=== PATIENT | male | born 1980 | race Caucasian/White ===

== ENCOUNTER 2018-10-15 13:37 | Inpatient (IN) | payer MEDICARE, MEDICAID ==
[~2018-10-15] VITALS: Ht 172.7 cm; Wt 108.3 kg
[2018-10-15] MEDS ORDERED: FUROSEMIDE 40 MG INJ IV ONE (16:00)
--- NOTE | 2018-10-15 16:17 | ERD ---
ER Documentation Chief Complaint Chief Complaint abdominal pain sent by Dr Neves, does perineal dialysis HPI This is a 38-year-old man complaining of shortness of breath and increased abdominal distention x2 to 3 days because he ran out of his furosemide about 3 days ago. He states he has also had dyspnea on exertion, shortness of breath, and increasing peripheral edema. Patient undergoes nightly peritoneal dialysis but states in the past he has required hemodialysis for severe symptoms. Patient denies fevers or chills, no chest pain, no loss of consciousness, no headache or blurry vision, no vomiting or diarrhea, no blood per rectum or melena. ROS All systems reviewed and are negative except as per history of present illness. Medications Home Meds Reported Medications Calcium Acetate* (Calcium Acetate*) 667 Mg Capsule, 1334 MG PO WITH MEALS, #60 CAP 10/15/18 Metoprolol Tartrate* (Lopressor*) 100 Mg Tablet, 100 MG PO BID, #60 TAB 10/15/18 Omeprazole* (Omeprazole*) 20 Mg Capsule.dr, 20 MG PO DAILY, #30 CAP 10/15/18 Hydralazine Hcl* (Hydralazine Hcl*) 25 Mg Tab, 25 MG PO TID, #60 TAB 10/15/18 Amoxicillin/Potassium Clav (Amox-Clav 875-125 mg Tablet) 875-125 mg Tab, 1 TAB PO BID, #20 TAB 10/15/18 Metolazone* (Metolazone*) 5 Mg Tablet, 5 MG PO DAILY, TAB 10/15/18 Albuterol Sulfate* (Ventolin HFA*) 18 Gm Hfa.aer.ad, 2 PUFF INHALATION Q4H, #1 INHALER 10/15/18 Allergies Allergies: Coded Allergies: No Known Allergy (Unverified , 10/15/18) PMhx/Soc Obesity, hypertension, gastritis, end-stage kidney disease requiring nightly peritoneal dialysis FmHx Family History: No diabetes Physical Exam Vitals Vital Signs Date Temp Pulse Resp B/P (MAP) Pulse Ox O2 O2 Flow FiO2 Time Delivery Rate 10/15/18 106 20 153/106 100 BIPAP 16:19 (122) 10/15/18 98.7 91 18 131/82 97 13:44 (98) Physical Exam GENERAL: Well-developed, well-nourished, well-hydrated, dyspneic, afebrile HEENT: Moist mucous membranes, pink conjunctiva, no cervical spine tenderness or step-off deformities, no goiter, no jaundice or icterus NEURO: Alert and oriented 3, cranial nerves II through XII intact bilaterally, pupils equal round reactive to light, no focal deficits or facial asymmetry, sensation intact distally Strength 5/5 in upper and lower extremities bilaterally CARDIAC: Regular rate and rhythm, no murmurs rubs or gallops LUNGS: Crackles bilaterally, poor breath sounds, no wheezing or stridor ABDOMEN: Soft nontender, no guarding, no rigidity, no rebound, no psoas sign no obturator sign. Normoactive bowel sounds SKIN: Warm and dry to touch, no abrasions, contusions, or hematomas, no la cerations, no ecchymosis, no target lesions, and without ulcers EXTREMITIES: No clubbing cyanosis, 3+ pitting edema in the lower extremities bilaterally, calves symmetrical PSYCH: Normal affect without agitation or irritability Result Diagram: 10/15/18 1600 10/15/18 1600 Results 24 hrs Laboratory Tests Test 10/15/18 16:00 White Blood Count 13.3 10^3/ul Red Blood Count 3.76 10^6/ul Hemoglobin 10.0 g/dl Hematocrit 33.0 % Mean Corpuscular Volume 87.8 fl Mean Corpuscular Hemoglobin 26.6 pg Mean Corpuscular Hemoglobin Concent 30.3 g/dl Red Cell Distribution Width 16.7 % Platelet Count 301 10^3/UL Mean Platelet Volume 10.1 fl Immature Granulocytes % 1.200 % Neutrophils % 90.3 % Lymphocytes % 4.6 % Monocytes % 3.5 % Eosinophils % 0.2 % Basophils % 0.2 % Nucleated Red Blood Cells % 0.0 /100WBC Immature Granulocytes # 0.160 10^3/ul Neutrophils # 12.0 10^3/ul Lymphocytes # 0.6 10^3/ul Monocytes # 0.5 10^3/ul Eosinophils # 0.0 10^3/ul Basophils # 0.0 10^3/ul Nucleated Red Blood Cells # 0.0 10^3/ul Prothrombin Time 15.3 Sec Prothrombin Time Ratio 1.2 INR International Normalized Ratio 1.20 Activated Partial Thromboplast Time 31.7 Sec Sodium Level 137 mmol/L Potassium Level 4.5 mmol/L Chloride Level 96 mmol/L Carbon Dioxide Level 26 mmol/L Anion Gap 15 Blood Urea Nitrogen 85 mg/dl Creatinine 15.74 mg/dl Est Glomerular Filtrat Rate mL/min 3 mL/min Glucose Level 108 mg/dl Calcium Level 8.8 mg/dl Total Bilirubin 0.3 mg/dl Direct Bilirubin 0.00 mg/dl Indirect Bilirubin 0.3 mg/dl Aspartate Amino Transf (AST/SGOT) 14 IU/L Alanine Aminotransferase (ALT/SGPT) 14 IU/L Alkaline Phosphatase 60 IU/L Troponin I 0.241 ng/ml B-Type Natriuretic Peptide 78241 PG/ML Total Protein 7.2 g/dl Albumin 3.9 g/dl Globulin 3.30 g/dl Albumin/Globulin Ratio 1.18 Lipase 69 U/L Current Medications Medications Dose Sig/Olivia Start Time Status Last (Trade) Ordered Route PRN Stop Time Admin Dose Reason Admin Furosemide 80 mg ONCE ONCE 10/15/18 DC 10/15/18 (Lasix) IV 16:00 16:11 10/15/18 16:01 Aspirin 324 mg ONCE ONCE 10/15/18 UNV (Aspirin) PO 17:00 10/15/18 17:01 Procedures/MDM IV line was established patient was placed on court recording monitor rhythm strip revealed a narrow complex tachycardia at 120 bpm with upright P and T waves. Patient was afebrile EKG performed, read by me revealed a sinus tachycardia at 115 bpm, left axis deviation, narrow QRS complex, no concerning ST elevations or depressions noted I administered Lasix 80 mg IV x1 Bilateral pulmonary congestion worse on the right compared to the left Patient was placed on BiPAP for tachypnea and dyspnea CBC was unremarkable, electrolytes reveals acute kidney injury with a BUN/creatinine 85/16, liver function tests normal, troponin elevated at 0.2, BNP elevated. I administered aspirin 324 mg p.o. for cardioprotective measures although patient has no complaints of chest pain. Critical Care: Time: 49 minutes, this was time separate from other billable procedures. Treatments/Evaluations: Close monitoring and treatment of unstable vital signs, cardiorespiratory, and neurologic status, while maintaining tight balance of fluid, respiratory, and cardiac interventions. Patient admitted to telemetry setting Departure Diagnosis: Primary Impression: Non-STEMI (non-ST elevated myocardial infarction) Additional Impressions: End stage kidney disease Pulmonary edema Chronicity: acute Qualified Codes: J81.0 - Acute pulmonary edema Acute respiratory failure Respiratory failure complication: hypoxia and hypercapnia Qualified Codes: J96.01 - Acute respiratory failure with hypoxia; J96.02 - Acute respiratory failure with hypercapnia Condition: Serious NOE PATIÑO MD Oct 15, 2018 16:17
[2018-10-15] MEDS ORDERED: ALBU18HF INHALATION (16:45)
[2018-10-15] MEDS ORDERED: METO5TAB65 PO (16:45)
[2018-10-15] MEDS ORDERED: AMOX1TAB10 PO (16:46)
[2018-10-15] MEDS ORDERED: METO-407 PO (16:47)
[2018-10-15] MEDS ORDERED: OMEP20CA16 PO (16:47)
[2018-10-15] MEDS ORDERED: HYDR-3671 PO (16:47)
[2018-10-15] MEDS ORDERED: CALC667C PO (16:48)
[2018-10-15] MEDS ORDERED: AMLO5TAB4 PO (16:49)
[2018-10-15] MEDS ORDERED: CINA30TA4 PO (16:49)
[2018-10-15] MEDS ORDERED: ASPIRIN 81 MG TAB PO ONE (17:00)
--- NOTE | 2018-10-15 17:42 | HP ---
Date/Time of Note Date/Time of Note DATE: 10/15/18 TIME: 17:42 Assessment/Plan VTE Prophylaxis Pharmacological prophylaxis: heparin Lines/Catheters IV [facility]ter Type (from [facility]): [facility]ine [facility] Assessment/Plan Hospital Course 38-year-old male with comorbidities including obesity, end-stage renal disease on peritoneal dialysis, and hypertension who was sent in by his primary care physician because of fluid overload, who will be admitted to inpatient setting for further treatment and evaluation. 1. Fluid overload. Most probably secondary to underlying worsening renal function. The patient is a peritoneal dialysis patient. Status post IV Lasix in the emergency room. 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 Vascular surgeon has been contacted. If unable to get vascular surgery at this time, will start the patient on a Lasix drip. 2D echocardiogram to evaluate for any underlying heart failure. 2. NSTEMI. Most probably a type II event in the setting of underlying fluid overload. Cardiology following. 3. Hypertension. Resume antihypertensives. 4. Leukocytosis. Most probably reactive. Monitor. 5. Abdominal pain. Most probably secondary to underlying fluid overload. If not responding to diuretic therapy/ultrafiltration will consider imaging studies. 6. Normocytic anemia. Most probably anemia chronic kidney disease. Monitor H&H closely. Plan: The patient will be admitted to inpatient telemetry floor. The patient will be started on a renal diet. The patient will be started on DVT prophylaxis. The patient will remain a full code. Activities will be as tolerated. The rest of the patient's management will be based on the clinical course, inputs from consultants, and the results of diagnostic studies. Based on the patient's clinical presentation, he most probably requires at least 2 midnights' stay for further management and evaluation of his clinical presentation. The patient was seen in collaboration with Dr. Crouch. Result Diagram: 10/15/18 1600 10/15/18 1600 Results 24hrs Laboratory Tests Test 10/15/18 16:00 White Blood Count 13.3 H Red Blood Count 3.76 L Hemoglobin 10.0 L Hematocrit 33.0 L Mean Corpuscular Volume 87.8 Mean Corpuscular Hemoglobin 26.6 L Mean Corpuscular Hemoglobin Concent 30.3 L Red Cell Distribution Width 16.7 H Platelet Count 301 Mean Platelet Volume 10.1 Immature Granulocytes % 1.200 H Neutrophils % 90.3 H Lymphocytes % 4.6 L Monocytes % 3.5 Eosinophils % 0.2 Basophils % 0.2 Nucleated Red Blood Cells % 0.0 Immature Granulocytes # 0.160 H Neutrophils # 12.0 H Lymphocytes # 0.6 L Monocytes # 0.5 Eosinophils # 0.0 Basophils # 0.0 Nucleated Red Blood Cells # 0.0 Prothrombin Time 15.3 H Prothrombin Time Ratio 1.2 INR International Normalized Ratio 1.20 Activated Partial Thromboplast Time 31.7 Sodium Level 137 Potassium Level 4.5 Chloride Level 96 L Carbon Dioxide Level 26 Anion Gap 15 H Blood Urea Nitrogen 85 H Creatinine 15.74 H Est Glomerular Filtrat Rate mL/min 3 L Glucose Level 108 Calcium Level 8.8 Total Bilirubin 0.3 Direct Bilirubin 0.00 Indirect Bilirubin 0.3 Aspartate Amino Transf (AST/SGOT) 14 L Alanine Aminotransferase (ALT/SGPT) 14 Alkaline Phosphatase 60 Troponin I 0.241 *H B-Type Natriuretic Peptide 04890 H Total Protein 7.2 Albumin 3.9 Globulin 3.30 H Albumin/Globulin Ratio 1.18 Lipase 69 HPI/ROS Admit Date/Time Admit Date/Time Hx of Present Illness Reason for admission: Fluid overload, dyspnea sent by Dr. Neves Consultants 1. Colton Dubose MD Cardiology. 2. Marlen Martines MD, Nephrology. 3. Dontae Carmona MD, Vascular Surgery. This is a 38-year-old male with past medical history of hypertension and end- stage renal disease on peritoneal dialysis who ran out of his Lasix for the past 3 days. The patient went to see Dr. Neves who instructed patient to go to the nearest emergency room. The patient had dyspnea on exertion and increasing peripheral edema. The patient also had increasing abdominal distention. The patient denied any chest pain or palpitations. He denied any dizziness. He denied any fevers or chills. In the emergency room, the patient was noticed to be in respiratory distress and he was put on noninvasive positive pressure ventilation. The patient's chest x-ray was showing bibasilar infiltrates and cardiomegaly. The patient was also noticed to have a troponin of 0.241. He had a BUN and creatinine of 85 and 15.74 respectively. The patient was given aspirin 324 mg along with Lasix 80 mg by the ER physician. ROS Constitutional: no complaints Eyes: no complaints ENT: no complaints Respiratory: shortness of breath Cardiovascular: edema Gastrointestinal: other (Abdominal distension) Genitourinary: no complaints Musculoskeletal: no complaints Skin: no complaints Neurologic: no complaints Endocrine: no complaints Lymphatic: no complaints Psychological: no complaints Immunologic: no complaints PMH/Family/Social Past Medical History 1. Hypertension. 2. End-stage renal disease on peritoneal dialysis. 3. Obesity. Coded Allergies: No Known Allergy (Unverified , 10/15/18) Past Surgical History 1. Peritoneal dialysis catheter placement. Family History Significant Family History: diabetes Social History The patient lives at home with family. Alcohol Use: none Smoking Status: Former smoker Drug Use: none Exam/Review of Systems Vital Signs Vitals Vital Signs Date Temp Pulse Resp B/P (MAP) Pulse Ox O2 O2 Flow FiO2 Time Delivery Rate 10/15/18 89 95 30 17:24 10/15/18 139/90 BIPAP 17:22 (106) 10/15/18 20 16:19 10/15/18 98.7 13:44 Exam Exam General: Adequately build 38 year-old male lying in bed in mild respiratory distress. HEENT: Normocephalic, atraumatic. Eyes: Anicteric sclerae, conjunctivae clear. ENT: Nasal septum midline, oral mucosa moist. Neck supple. Respiratory: Bilaterally diminished breath sounds. Minimal use of accessory muscles of respiration. No adventitious breath sounds. Cardiovascular: S1, S2 heard. Regular rate and rhythm. Tachycardia. Abdomen: Distended. Genitourinary: Deferred. Extremities: No cyanosis, no clubbing. Bilateral lower extremity 2+ pitting edema. Peripheral pulses palpable. Neurologic: Cranial nerves II through XII grossly intact. The patient is awake, alert, and oriented. Skin: Normal skin turgor. No skin rashes. Additional Comments CXR IMPRESSION: 1. Bibasilar infiltrates. 2. Cardiomegaly. 12-Lead EKG Pulmonary disease pattern. Left anterior fascicular block. MARGE STAHL NP Oct 15, 2018 17:42
--- NOTE | 2018-10-15 17:50 | CONS ---
Assessment/Plan Assessment/Plan Hospital Course (Demo Recall) 1. Mildly abnormal troponin with no chest pain: Most likely secondary to his renal failure and fluid overload/congestive heart failure 2. Fluid overload/congestive heart failure acute on chronic probably secondary to fluid overload. Rule out cardiomyopathy 3. Hypertension hypertensive heart disease 4. Renal failure on peritoneal dialysis 5. Abdominal pain 6. Anemia Recommendations: We will obtain echocardiogram in a.m. Repeat cardiac enzymes: CK CK-MB in a.m. Dialysis as per renal team. Continue with blood pressure control. GI work-up and treatment as per internal medicine. Thank you for his referral. We will continue to follow along with you EDSON CASTELLON MD [facility] Consultation Date/Type/Reason Admit Date/Time Date of Consultation: Oct 15, 2018 Type of Consult Cardiology Reason for Consultation + trop Requesting Provider: MARGE STAHL NP Date/Time of Note DATE: 10/15/18 TIME: 17:44 Hx of Present Illness Interventional cardiology consultation note Chief complaint: Abdominal pain Reason for consult: Abnormal troponin History of present illness: Thank you for this referral. History was obtained from the patient from discussion with his family members at the bedside review of the chart discussion with the staff and physicians. This is a pleasant 38-year-old gentleman with history of renal failure on peritoneal dialysis who came to emergency room because of lower abdominal pain. Patient said that he has had lower abdominal pain sharp poking over the past 2 to 3 days he was seen by his primary care physician and was sent to emergency room for further evaluation. He denies any left-sided chest pain or pressure to me but in the emergency room routine work-up included troponin which was mildly elevated at 0.23. Patient chest x-ray also shows fluid overload and patient has been respiratory failure has been placed on BiPAP currently. Patient denies any left-sided chest pain or pressure but does have shortness of breath and some orthopnea especially. Patient pain has also ran out of his diuretics recently Allergies: No known drug allergies Medications were reviewed as per medical reconciliation sheet Family history: No history of early coronary artery disease Social history: Non-smoker Past medical history: Hypertension, renal failure on dialysis Review of system: Patient denies all others except for above-mentioned Past Medical History Home Meds Reported Medications Amlodipine Besylate* (Norvasc*) 5 Mg Tablet, 5 MG PO DAILY, TAB 10/15/18 Cinacalcet* (Sensipar*) 30 Mg Tab, 30 MG PO DAILY, TAB 10/15/18 Calcium Acetate* (Calcium Acetate*) 667 Mg Capsule, 1334 MG PO WITH MEALS, #60 CAP 10/15/18 Metoprolol Tartrate* (Lopressor*) 100 Mg Tablet, 100 MG PO BID, #60 TAB 10/15/18 Omeprazole* (Omeprazole*) 20 Mg Capsule.dr, 20 MG PO DAILY, #30 CAP 10/15/18 Hydralazine Hcl* (Hydralazine Hcl*) 25 Mg Tab, 25 MG PO TID, #60 TAB 10/15/18 Amoxicillin/Potassium Clav (Amox-Clav 875-125 mg Tablet) 875-125 mg Tab, 1 TAB PO BID, #20 TAB 10/15/18 Metolazone* (Metolazone*) 5 Mg Tablet, 5 MG PO DAILY, TAB 10/15/18 Albuterol Sulfate* (Ventolin HFA*) 18 Gm Hfa.aer.ad, 2 PUFF INHALATION Q4H, #1 INHALER 10/15/18 Allergies: Coded Allergies: No Known Allergy (Unverified , 10/15/18) Social History Smoking Status: Never smoker Exam/Review of Systems Vital Signs Vitals Vital Signs Date Temp Pulse Resp B/P (MAP) Pulse Ox O2 O2 Flow FiO2 Time Delivery Rate 10/15/18 89 95 30 17:24 10/15/18 139/90 BIPAP 17:22 (106) 10/15/18 20 16:19 10/15/18 98.7 13:44 Exam Exam General: Mild respiratory distress on BiPAP currently HEENT: NC/AT. pupils are equal. round. NECK: . no stridor. CV: RRR. systolic murmur; no gallop or rubs. PULM: no wheezing . + rhonchi. GI: SOFT, NT, , no rebound or guarding . + Mildly distended status post peritoneal dialysis tube placement Extremity: + B/L LE edema. no clubbing. neuro: awake and alert, OX3. Psych: calm and pleasant rectal: deferred : normal EKG shows sinus tachycardia. The vertical conduction delay. Pulmonary pattern Chest x-ray shows: 1. Bibasilar infiltrates. 2. Cardiomegaly. Labs Result Diagram: 10/15/18 1600 10/15/18 1600 Results 24hrs Laboratory Tests Test 10/15/18 16:00 White Blood Count 13.3 H Red Blood Count 3.76 L Hemoglobin 10.0 L Hematocrit 33.0 L Mean Corpuscular Volume 87.8 Mean Corpuscular Hemoglobin 26.6 L Mean Corpuscular Hemoglobin Concent 30.3 L Red Cell Distribution Width 16.7 H Platelet Count 301 Mean Platelet Volume 10.1 Immature Granulocytes % 1.200 H Neutrophils % 90.3 H Lymphocytes % 4.6 L Monocytes % 3.5 Eosinophils % 0.2 Basophils % 0.2 Nucleated Red Blood Cells % 0.0 Immature Granulocytes # 0.160 H Neutrophils # 12.0 H Lymphocytes # 0.6 L Monocytes # 0.5 Eosinophils # 0.0 Basophils # 0.0 Nucleated Red Blood Cells # 0.0 Prothrombin Time 15.3 H Prothrombin Time Ratio 1.2 INR International Normalized Ratio 1.20 Activated Partial Thromboplast Time 31.7 Sodium Level 137 Potassium Level 4.5 Chloride Level 96 L Carbon Dioxide Level 26 Anion Gap 15 H Blood Urea Nitrogen 85 H Creatinine 15.74 H Est Glomerular Filtrat Rate mL/min 3 L Glucose Level 108 Calcium Level 8.8 Total Bilirubin 0.3 Direct Bilirubin 0.00 Indirect Bilirubin 0.3 Aspartate Amino Transf (AST/SGOT) 14 L Alanine Aminotransferase (ALT/SGPT) 14 Alkaline Phosphatase 60 Troponin I 0.241 *H B-Type Natriuretic Peptide 86748 H Total Protein 7.2 Albumin 3.9 Globulin 3.30 H Albumin/Globulin Ratio 1.18 Lipase 69 EDSON CASTELLON MD Oct 15, 2018 17:50
[2018-10-15] MEDS ORDERED: HYDROCODONE/APAP (5/325) TAB PO PRN (18:00)
[2018-10-15] MEDS ORDERED: ONDANSETRON 4 MG INJ IV PRN (18:00)
[2018-10-15] MEDS ORDERED: NACL 0.9% 3 ML SYG IV SCH (18:00)
[2018-10-15] MEDS ORDERED: SOD CHLORIDE 0.9% 1,000 ML IV PRN (18:11)
[2018-10-15] MEDS: CALCIUM ACETATE 667 MG CAP PO SCH (18:24)
[2018-10-15] MEDS ORDERED: HEPARIN 1000 UNITS/ML 10 ML INJ CATHETER SCH ×2 (18:30)
[2018-10-15] MEDS ORDERED: SODIUM CHLORIDE 0.9% 1L BAG IV PRN ×2 (18:30)
[2018-10-15] MEDS ORDERED: FUROSEMIDE 250 MG in DEXTROSE 5% 225 ML IV SCH (19:30)
[2018-10-15 21:55] VITALS: PULSE 112
[2018-10-15 22:00] VITALS: BP 134/81; PULSE 113; RESP 20
[2018-10-15 22:10] VITALS: PULSE 111
[2018-10-15 22:30] VITALS: Ht 172.7 cm; Wt 108.3 kg
[2018-10-15 23:12] VITALS: PULSE 108
[2018-10-16] VITALS (17 sets, daily range): BP systolic 106–139; BP diastolic 71–85; PULSE 75–114; RESP 18–22
[2018-10-16] MEDS: METOPROLOL 100 MG TAB PO SCH ×3 (00:20→21:13)
[2018-10-16] MEDS: ACETAMINOPHEN 325 MG TAB PO PRN (00:23)
[2018-10-16] MEDS: HEPARIN 5,000 UNIT/1 ML VIAL SC SCH ×4 (00:30→21:25)
[2018-10-16] MEDS: AMOXICILLIN/CLAV 875 MG TAB PO SCH ×3 (05:48→21:13)
--- NOTE | 2018-10-16 08:44 | CONS ---
Consult Date/Type/Reason Admit Date/Time Oct 15, 2018 at 16:46 Initial Consult Date 10/15/18 Requesting Provider: MARGE STALH NP Date/Time of Note DATE: 10/16/18 TIME: 08:42 Subjective Interventional cardiology follow-up progress note Subjective: Discussed with the staff and telemetry was reviewed patient remains sinus rhythm. Patient denies any left-sided chest pain or pressure to me. Breathing has significantly improved now is off of BiPAP His lower abdominal pain is improving to Objective: General: no respiratory distress on O2 HEENT: NC/AT. pupils are equal. round. NECK: . no stridor. CV: RRR. systolic murmur; no gallop or rubs. PULM: no wheezing . +mild rhonchi. GI: SOFT, NT, , no rebound or guarding . + Mildly distended status post peritoneal dialysis tube placement Extremity: + B/L LE edema. no clubbing. neuro: awake and alert, OX3. Psych: calm and pleasant rectal: deferred : normal EKG shows sinus tachycardia. The vertical conduction delay. Pulmonary pattern Chest x-ray shows: 1. Bibasilar infiltrates. 2. Cardiomegaly. Objective Vitals Vital Signs Date Temp Pulse Resp B/P (MAP) Pulse Ox O2 O2 Flow FiO2 Time Delivery Rate 10/16/18 78 08:11 10/16/18 98.3 20 116/72 98 BIPAP 07:30 (87) 10/16/18 40 05:05 Intake and Output 10/15/18 10/15/18 10/16/18 1515:00 23:00 07:00 IntakeIntake Total 141 ml OutputOutput Total 550 ml BalanceBalance -409 ml Results/Medications Result Diagram: 10/16/18 0455 10/16/18 0455 Results 24 hrs Laboratory Tests Test 10/15/18 15:54 10/15/18 16:00 10/16/18 02:58 10/16/18 04:55 Hemoglobin A1c 6.3 H White Blood Count 13.3 H 11.4 H Red Blood Count 3.76 L 3.50 L Hemoglobin 10.0 L 9.2 L Hematocrit 33.0 L 30.9 L Mean Corpuscular 87.8 88.3 Volume Mean Corpuscular 26.6 L 26.3 L Hemoglobin Mean Corpuscular 30.3 L 29.8 L Hemoglobin Concent Red Cell 16.7 H 16.5 H Distribution Width Platelet Count 301 278 Mean Platelet Volume 10.1 10.5 H Immature 1.200 H 1.100 H Granulocytes % Neutrophils % 90.3 H 87.7 H Lymphocytes % 4.6 L 4.5 L Monocytes % 3.5 5.4 Eosinophils % 0.2 1.1 Basophils % 0.2 0.2 Nucleated Red Blood 0.0 0.0 Cells % Immature 0.160 H 0.130 H Granulocytes # Neutrophils # 12.0 H 10.0 H Lymphocytes # 0.6 L 0.5 L Monocytes # 0.5 0.6 Eosinophils # 0.0 0.1 Basophils # 0.0 0.0 Nucleated Red Blood 0.0 0.0 Cells # Prothrombin Time 15.3 H Prothrombin Time 1.2 Ratio INR International 1.20 Normalized Ratio Activated 31.7 Partial Thromboplast Time Sodium Level 137 138 Potassium Level 4.5 4.8 Chloride Level 96 L 97 Carbon Dioxide Level 26 28 Anion Gap 15 H 13 Blood Urea Nitrogen 85 H 88 H Creatinine 15.74 H 17.73 H Est Glomerular 3 L 3 L Filtrat Rate mL/min Glucose Level 108 109 Calcium Level 8.8 8.8 Total Bilirubin 0.3 0.2 Direct Bilirubin 0.00 0.00 Indirect Bilirubin 0.3 0.2 Aspartate Amino 14 L 12 L Transf (AST/SGOT) Alanine 14 17 Aminotransferase (AL T/SGPT) Alkaline Phosphatase 60 55 Troponin I 0.241 *H 0.362 *H B-Type Natriuretic 19569 H Peptide Total Protein 7.2 5.6 #L Albumin 3.9 3.2 L Globulin 3.30 H 2.40 Albumin/Globulin 1.18 1.33 Ratio Lipase 69 Lactic Acid Level 0.9 Magnesium Level 2.5 Creatine Kinase 68 Creatine Kinase 3.1 Index Creatinine Kinase MB 2.13 (Mass) Triglycerides Level 175 H Cholesterol Level 141 LDL Cholesterol, 75 Calculated HDL Cholesterol 31 Cholesterol/HDL 4.5 Ratio Home Meds Reported Medications Amlodipine Besylate* (Norvasc*) 5 Mg Tablet, 5 MG PO DAILY, TAB 10/15/18 Cinacalcet* (Sensipar*) 30 Mg Tab, 30 MG PO DAILY, TAB 10/15/18 Calcium Acetate* (Calcium Acetate*) 667 Mg Capsule, 1334 MG PO WITH MEALS, #60 CAP 10/15/18 Metoprolol Tartrate* (Lopressor*) 100 Mg Tablet, 100 MG PO BID, #60 TAB 10/15/18 Omeprazole* (Omeprazole*) 20 Mg Capsule.dr, 20 MG PO DAILY, #30 CAP 10/15/18 Hydralazine Hcl* (Hydralazine Hcl*) 25 Mg Tab, 25 MG PO TID, #60 TAB 10/15/18 Amoxicillin/Potassium Clav (Amox-Clav 875-125 mg Tablet) 875-125 mg Tab, 1 TAB PO BID, #20 TAB 10/15/18 Metolazone* (Metolazone*) 5 Mg Tablet, 5 MG PO DAILY, TAB 10/15/18 Albuterol Sulfate* (Ventolin HFA*) 18 Gm Hfa.aer.ad, 2 PUFF INHALATION Q4H, #1 INHALER 10/15/18 Medications Current Medications Amlodipine Besylate (Norvasc) 5 mg DAILY PO ; Start 10/16/18 at 09:00 Calcium Acetate (Phoslo) 1,334 mg WITH MEALS PO Last administered on 10/15/18at 18:24; Admin Dose 1,334 MG; Start 10/15/18 at 18:00 Cinacalcet (Sensipar) 30 mg DAILY PO ; Start 10/16/18 at 09:00 Hydralazine HCl (Apresoline) 25 mg TID PO Last administered on 10/16/18at 00:20; Admin Dose 25 MG; Start 10/15/18 at 21:00 Metolazone (Zaroxolyn) 5 mg DAILY PO ; Start 10/16/18 at 09:00 Metoprolol Tartrate (Lopressor) 100 mg BID PO Last administered on 10/16/18at 00:20; Admin Dose 100 MG; Start 10/15/18 at 21:00 IV Flush (NS 3 ml) 3 ml PER PROTOCOL IV ; Start 10/15/18 at 18:00 Ondansetron HCl (Zofran Inj) 4 mg Q6H PRN IV NAUSEA/VOMITING; Start 10/15/18 at 18:00 Acetaminophen (Tylenol Tab) 650 mg Q6H PRN PO .PAIN 1-3 OR TEMP Last administered on 10/16/18at 00:23; Admin Dose 650 MG; Start 10/15/18 at 18:00 Acetaminophen/ Hydrocodone Bitart ([place] (5/325)) 1 tab Q6H PRN PO .PAIN 4-6; Start 10/15/18 at 18:00 Heparin Sodium (Porcine) (Heparin (5000 Units/1ml)) 5,000 unit Q8 SC Last administered on 10/16/18at 06:11; Admin Dose 5,000 UNIT; Start 10/15/18 at 22:00 Heparin Sodium (Porcine) (Heparin (1000 Units/ml)) 4,000 unit AFTER DIALYSIS CATHETER ; Start 10/15/18 at 18:30 Sodium Chloride 1,000 ml @ 0 mls/hr Q0M PRN IV TO KEEP SBP ABOVE 90; Start 10/15/18 at 18:11 Sodium Chloride (NS) -To prime the dialy... DIRECTED FOR HD PRN IV HD; Start 10/15/18 at 18:30 Amoxicillin/ Clavulanate Potassium (Augmentin) 875 mg BID PO Last administered on 10/16/18at 05:48; Admin Dose 875 MG; Start 10/16/18 at 03:30; Stop 10/17/18 at 09:01 Assessment/Plan Hospital Course (Demo Recall) 1. Mildly abnormal troponin with no chest pain: Most likely secondary to his renal failure and fluid overload/congestive heart failure 2. Fluid overload/congestive heart failure acute on chronic probably secondary to fluid overload. Rule out cardiomyopathy 3. Hypertension hypertensive heart disease 4. Renal failure on peritoneal dialysis 5. Abdominal pain 6. Anemia Recommendations: We will obtain echocardiogram today . Dialysis as per renal team. Continue with blood pressure control. GI work-up and treatment as per internal medicine. I will order an ultrasound of the abdomen meanwhile evaluate for ascites versus others Thank you for his referral. We will continue to follow along with you EDSON CASTELLON MD [facility] EDSON CASTELLON MD Oct 16, 2018 08:44
[2018-10-16] MEDS: CINACALCET 30 MG TAB PO SCH (09:30)
[2018-10-16] MEDS: CALCIUM ACETATE 667 MG CAP PO SCH ×3 (09:30→17:45)
[2018-10-16] MEDS: AMLODIPINE 5 MG TAB PO SCH (09:30)
--- NOTE | 2018-10-16 10:12 | RADRPT ---
Echocardiogram Report Patient Name: ESDRAS OLIVEROSPatient ID: [id number] : 1980 (38y 9m)Study Date: 10/16/2018 7:36:38 AM Gender: MAccession #: [id number] Tech: Soledad Messer RUST Location: [id number] Ref.Physician: EDSON DUBOSE Height(Cm): BSA: Weight(Kg): Quality: Technically Difficult StudyOrder Physician: EDSON DUBOSE Account #: Procedures: Echocardiographic Report: Transthoracic echocardiogram with complete 2D, M-Mode, and doppler examination. Indications: Positive Troponin. Measurements: 2D/M Mode Doppler Measurement Value Normal Range Measurement Value Normal Range LVIDd 2D 4.2 [ 4.2 - 5.8 ] cm AV Peak Pieter 1.8 [ 100.0 - 170.0 ] cm/sec LVIDs 2D 2.3 [ 2.5 - 4.0 ] cm AV Peak PG 12.0 [ 2.0 - 9.0 ] mmHg LVPWd 2D 1.7 [ 0.6 - 1.0 ] cm LVOT Peak Pieter 1.5 [ 70.0 - 110.0 ] cm/sec IVSd 2D 1.6 [ 0.6 - 1.0 ] cm LVOT Peak PG 9.0 [ 2.0 - 6.0 ] mmHg AoR Diam 2D 3.3 [ 2.6 - 3.4 ] cm MV E Peak Pieter 0.7 [ 60.0 - 130.0 ] cm/sec EDV 2D 78.6 [ 62.0 - 150.0 ] ml MV A Peak Pieter 0.9 [ 100.0 - 120.0 ] cm/sec ESV 2D 18.1 [ 21.0 - 61.0 ] ml MV E/A 0.8 [ 0.8 - 1.5 ] ratio EF 2D 77.0 [ 52.0 - 72.0 ] percent MV Decel Time 183 [ 104 - 258 ] msec LA Dimen 2D 4.4 [ 3.0 - 4.0 ] cm Lat E` Pieter 0.1 [ 10.0 - 15.0 ] cm/sec Lateral E/E` 13.0 [ 1.0 - 2.0 ] ratio MV E/A 0.8 [ 0.8 - 1.5 ] ratio TR Peak Pieter 2.4 [ 100.0 - 280.0 ] cm/sec TR Peak PG 23.0 mmHg RVSP 33.0 [ 10.0 - 36.0 ] mmHg RA Pressure 10.0 mmHg Findings: Left Ventricle: Normal left ventricular systolic function. Normal left ventricular cavity size. Severe concentric left ventricular hypertrophy. Ejection fraction is visually estimated at 70 %. Tissue Doppler/Mitral Doppler indices are consistent with impaired relaxation (Stage I diastolic dysfunction). Right Ventricle: Normal right ventricular size. Normal right ventricular systolic function. Left Atrium: There is mild enlargement of left atrium. Right Atrium: The right atrium is normal in size. Mitral Valve: Normal appearance and function of the mitral valve with trace physiologic regurgitation. Aortic Valve: Normal appearance of the aortic valve. No significant aortic stenosis or insufficiency. Tricuspid Valve: Normal appearance of the tricuspid valve. The estimated Peak RVSP is 33 mmHg. There is trace tricuspid regurgitation. Pulmonic Valve: Pulmonic valve not well visualized. Pericardium: Small pericardial effusion. Aorta: Normal aortic root. IVC: Normal size and normal respiratory collapse consistent with normal right atrial pressure. Conclusions: Normal left ventricular systolic function. Normal left ventricular cavity size. Severe concentric left ventricular hypertrophy. Ejection fraction is visually estimated at 70 %. Tissue Doppler/Mitral Doppler indices are consistent with impaired relaxation (Stage I diastolic dysfunction). There is mild enlargement of left atrium. Normal appearance and function of the mitral valve with trace physiologic regurgitation. Normal appearance of the aortic valve. No significant aortic stenosis or insufficiency. Normal appearance of the tricuspid valve. The estimated Peak RVSP is 33 mmHg. There is trace tricuspid regurgitation. Electronically Signed By: Edson Dubose 2018-10-16 10:10:42 PDT
[2018-10-16] MEDS: METOLAZONE 5 MG TAB PO SCH (12:36)
--- NOTE | 2018-10-16 14:10 | CONS ---
Assessment/Plan Assessment/Plan Assessment/Plan ACUTE LOWER ABDOMINAL PAIN WITH WATERY LOOSE BOWELS X 3 FOR LAST 2 DAYS ? FOOD RELATED, NO FEVER CHILLS BILATERAL LEG EDEMA FLUID OVERLOAD, BL CHEST INFILTRATES ATELECTASIS, MILD LEUKOCYTOSIS ESRD DUE TO CHRONIC KIDNEY DISEASE OF UNDETERMINED ETIOLOGY ON PERITONEAL DIALYSIS MILD ANEMIA ESRD HYPERTENSION CONTROLLED ELEVATED BNP AND TROPONIN CONCENTRIC HYPERTROPHY LEFT VENTRICLE WITH EF OF 70% PLAN ACUTE HD WITH RT FEMORAL CATHETER ALREADY INSERTED FOR ULTRAFILTRATION. Consultation Date/Type/Reason Admit Date/Time Oct 15, 2018 at 16:46 Type of Consult Nephrology Date/Time of Note DATE: 10/16/18 TIME: 13:55 Hx of Present Illness abdominal pain suprapubic area as if colitis since monday with 3 watery bowel movements . abdominal pain improving shortness of breath improving. unable to eat much for last 2 days . had sandwich today. no chest pain, nausea vomiting. H/O ESRD HYPERTENSION OBESITY NONCOMPLIANCE WITH SALT AND FLUID INTAKE Constitutional: requiring O2 Respiratory: cough, shortness of breath, wheezing Gastrointestinal: pain, decreased appetite, diarrhea Past Medical History Home Meds Reported Medications Amlodipine Besylate* (Norvasc*) 5 Mg Tablet, 5 MG PO DAILY, TAB 10/15/18 Cinacalcet* (Sensipar*) 30 Mg Tab, 30 MG PO DAILY, TAB 10/15/18 Calcium Acetate* (Calcium Acetate*) 667 Mg Capsule, 1334 MG PO WITH MEALS, #60 CAP 10/15/18 Metoprolol Tartrate* (Lopressor*) 100 Mg Tablet, 100 MG PO BID, #60 TAB 10/15/18 Omeprazole* (Omeprazole*) 20 Mg Capsule.dr, 20 MG PO DAILY, #30 CAP 10/15/18 Hydralazine Hcl* (Hydralazine Hcl*) 25 Mg Tab, 25 MG PO TID, #60 TAB 10/15/18 Amoxicillin/Potassium Clav (Amox-Clav 875-125 mg Tablet) 875-125 mg Tab, 1 TAB PO BID, #20 TAB 10/15/18 Metolazone* (Metolazone*) 5 Mg Tablet, 5 MG PO DAILY, TAB 10/15/18 Albuterol Sulfate* (Ventolin HFA*) 18 Gm Hfa.aer.ad, 2 PUFF INHALATION Q4H, #1 INHALER 10/15/18 Medications Current Medications Amlodipine Besylate (Norvasc) 5 mg DAILY PO Last administered on 10/16/18 09:30; Admin Dose 5 MG; Start 10/16/18 at 09:00 Calcium Acetate (Phoslo) 1,334 mg WITH MEALS PO Last administered on 10/16/18 12:35; Admin Dose 1,334 MG; Start 10/15/18 at 18:00 Cinacalcet (Sensipar) 30 mg DAILY PO Last administered on 10/16/18 09:30; Admin Dose 30 MG; Start 10/16/18 at 09:00 Hydralazine HCl (Apresoline) 25 mg TID PO Last administered on 10/16/18 09:31; Admin Dose 25 MG; Start 10/15/18 at 21:00 Metolazone (Zaroxolyn) 5 mg DAILY PO Last administered on 10/16/18 12:36; Admin Dose 5 MG; Start 10/16/18 at 09:00 Metoprolol Tartrate (Lopressor) 100 mg BID PO Last administered on 10/16/18 0 9:31; Admin Dose 100 MG; Start 10/15/18 at 21:00 IV Flush (NS 3 ml) 3 ml PER PROTOCOL IV ; Start 10/15/18 at 18:00 Ondansetron HCl (Zofran Inj) 4 mg Q6H PRN IV NAUSEA/VOMITING; Start 10/15/18 at 18:00 Acetaminophen (Tylenol Tab) 650 mg Q6H PRN PO .PAIN 1-3 OR TEMP Last administered on 10/16/18 00:23; Admin Dose 650 MG; Start 10/15/18 at 18:00 Acetaminophen/ Hydrocodone Bitart (Metaline (5/325)) 1 tab Q6H PRN PO .PAIN 4-6; Start 10/15/18 at 18:00 Heparin Sodium (Porcine) (Heparin (5000 Units/1ml)) 5,000 unit Q8 SC Last administered on 10/16/18 06:11; Admin Dose 5,000 UNIT; Start 10/15/18 at 22:00 Heparin Sodium (Porcine) (Heparin (1000 Units/ml)) 4,000 unit AFTER DIALYSIS CATHETER ; Start 10/15/18 at 18:30 Sodium Chloride 1,000 ml @ 0 mls/hr Q0M PRN IV TO KEEP SBP ABOVE 90; Start 10/06 at 18:11 Sodium Chloride (NS) -To prime the dialy... DIRECTED FOR HD PRN IV HD; Start 10/15/18 at 18:30 Amoxicillin/ Clavulanate Potassium (Augmentin) 875 mg BID PO Last administered on 10/16/18at 09:30; Admin Dose 875 MG; Start 10/16/18 at 03:30; Stop 10/17/18 at 09:01 Allergies: Coded Allergies: No Known Allergy (Unverified , 10/15/18) Social History Alcohol Use: none Smoking Status: Never smoker Drug Use: none Exam/Review of Systems Vital Signs Vitals Vital Signs Date Temp Pulse Resp B/P (MAP) Pulse Ox O2 O2 Flow FiO2 Time Delivery Rate 10/16/18 96 12:14 10/16/18 98.1 20 131/78 93 Nasal 11:34 (95) Cannula 10/16/18 40 05:05 Intake and Output 10/15/18 10/15/18 10/16/18 1515:00 23:00 07:00 IntakeIntake Total 141 ml OutputOutput Total 550 ml BalanceBalance -409 ml Exam Respiratory: congested cough, diminished breath sounds, wheezing Gastrointestinal: tender (SUPRAPUBIC AREA) Extremities: edema (1 PLUS EITHER SIDE [place]) Labs Result Diagram: 10/16/18 0455 10/16/18 0455 Results 24hrs Laboratory Tests Test 10/15/18 15:54 10/15/18 16:00 10/16/18 02:58 10/16/18 04:55 Hemoglobin A1c 6.3 H White Blood Count 13.3 H 11.4 H Red Blood Count 3.76 L 3.50 L Hemoglobin 10.0 L 9.2 L Hematocrit 33.0 L 30.9 L Mean Corpuscular 87.8 88.3 Volume Mean Corpuscular 26.6 L 26.3 L Hemoglobin Mean Corpuscular 30.3 L 29.8 L Hemoglobin Concent Red Cell 16.7 H 16.5 H Distribution Width Platelet Count 301 278 Mean Platelet Volume 10.1 10.5 H Immature 1.200 H 1.100 H Granulocytes % Neutrophils % 90.3 H 87.7 H Lymphocytes % 4.6 L 4.5 L Monocytes % 3.5 5.4 Eosinophils % 0.2 1.1 Basophils % 0.2 0.2 Nucleated Red Blood 0.0 0.0 Cells % Immature 0.160 H 0.130 H Granulocytes # Neutrophils # 12.0 H 10.0 H Lymphocytes # 0.6 L 0.5 L Monocytes # 0.5 0.6 Eosinophils # 0.0 0.1 Basophils # 0.0 0.0 Nucleated Red Blood 0.0 0.0 Cells # Prothrombin Time 15.3 H Prothrombin Time 1.2 Ratio INR International 1.20 Normalized Ratio Activated 31.7 Partial Thromboplast Time Sodium Level 137 138 Potassium Level 4.5 4.8 Chloride Level 96 L 97 Carbon Dioxide Level 26 28 Anion Gap 15 H 13 Blood Urea Nitrogen 85 H 88 H Creatinine 15.74 H 17.73 H Est Glomerular 3 L 3 L Filtrat Rate mL/min Glucose Level 108 109 Calcium Level 8.8 8.8 Total Bilirubin 0.3 0.2 Direct Bilirubin 0.00 0.00 Indirect Bilirubin 0.3 0.2 Aspartate Amino 14 L 12 L Transf (AST/SGOT) Alanine 14 17 Aminotransferase (AL T/SGPT) Alkaline Phosphatase 60 55 Troponin I 0.241 *H 0.362 *H B-Type Natriuretic 26299 H Peptide Total Protein 7.2 5.6 #L Albumin 3.9 3.2 L Globulin 3.30 H 2.40 Albumin/Globulin 1.18 1.33 Ratio Lipase 69 Lactic Acid Level 0.9 Magnesium Level 2.5 Creatine Kinase 68 Creatine Kinase 3.1 Index Creatinine Kinase MB 2.13 (Mass) Triglycerides Level 175 H Cholesterol Level 141 LDL Cholesterol, 75 Calculated HDL Cholesterol 31 Cholesterol/HDL 4.5 Ratio Medications Medications Current Medications Amlodipine Besylate (Norvasc) 5 mg DAILY PO Last administered on 10/16/18 09:30; Admin Dose 5 MG; Start 10/16/18 at 09:00 Calcium Acetate (Phoslo) 1,334 mg WITH MEALS PO Last administered on 10/16/18 12:35; Admin Dose 1,334 MG; Start 10/15/18 at 18:00 Cinacalcet (Sensipar) 30 mg DAILY PO Last administered on 10/16/18 09:30; Admin Dose 30 MG; Start 10/16/18 at 09:00 Hydralazine HCl (Apresoline) 25 mg TID PO Last administered on 10/16/18 09:31; Admin Dose 25 MG; Start 10/15/18 at 21:00 Metolazone (Zaroxolyn) 5 mg DAILY PO Last administered on 10/16/18 12:36; Admin Dose 5 MG; Start 10/16/18 at 09:00 Metoprolol Tartrate (Lopressor) 100 mg BID PO Last administered on 10/16/18 09:31; Admin Dose 100 MG; Start 10/15/18 at 21:00 IV Flush (NS 3 ml) 3 ml PER PROTOCOL IV ; Start 10/15/18 at 18:00 Ondansetron HCl (Zofran Inj) 4 mg Q6H PRN IV NAUSEA/VOMITING; Start 10/15/18 at 18:00 Acetaminophen (Tylenol Tab) 650 mg Q6H PRN PO .PAIN 1-3 OR TEMP Last administered on 10/16/18 00:23; Admin Dose 650 MG; Start 10/15/18 at 18:00 Acetaminophen/ Hydrocodone Bitart (Metaline (5/325)) 1 tab Q6H PRN PO .PAIN 4-6; Start 10/15/18 at 18:00 Heparin Sodium (Porcine) (Heparin (5000 Units/1ml)) 5,000 unit Q8 SC Last administered on 10/16/18 06:11; Admin Dose 5,000 UNIT; Start 10/15/18 at 22:00 Heparin Sodium (Porcine) (Heparin (1000 Units/ml)) 4,000 unit AFTER DIALYSIS CATHETER ; Start 10/15/18 at 18:30 Sodium Chloride 1,000 ml @ 0 mls/hr Q0M PRN IV TO KEEP SBP ABOVE 90; Start 10/15/18 at 18:11 Sodium Chloride (NS) -To prime the dialy... DIRECTED FOR HD PRN IV HD; Start 10/15/18 at 18:30 Amoxicillin/ Clavulanate Potassium (Augmentin) 875 mg BID PO Last administered on 10/16/18 09:30; Admin Dose 875 MG; Start 10/16/18 at 03:30; Stop 10/17/18 at 09:01 TRACEE YATES MD Oct 16, 2018 14:09
--- NOTE | 2018-10-16 15:27 | PN ---
Date/Time of Note Date/Time of Note DATE: 10/16/18 TIME: 15:19 Assessment/Plan VTE Prophylaxis Risk score (from Nsg)>0 risk: 1 SCD applied (from Nsg): Yes Pharmacological prophylaxis: heparin Lines/Catheters IV Catheter Type (from Nrsg): Saline Lock Urinary Cath still in place: No Assessment/Plan Assessment/Plan 38-year-old obese man with history of ESRD on peritoneal dialysis and hy pertension presents with abdominal pain and diarrhea. # Fluid overload - Unclear exact etiology. If anything patient has had GI losses from diarrhea. - Was on lasix gtt but only put out 500 cc urine - Now s/p femoral vascath, plan for hemodialysis for ultrafiltration. - Dr. De La Fuente following. # Abdominal pain # Diarrhea - Consistent with acute gastroenteritis - However he also does have rebound tenderness on exam concerning for early peritonitis - Continue Augmentin as ordered, although treatment for SBP is typically fluoroquinolones. - Monitor closely. May improve after HD. # Elevated troponin - Unclear why troponin sent, patient denies chest pain. - Cardiology following. No further workup needed. # Hypertension. Resume antihypertensives. Plan: Plan for one session of hemodialysis today. Also on antibiotics for possible peritonitis. May benefit from a week of ciprofloxacin. Will defer to Dr. De La Fuente. Result Diagram: 10/16/18 0455 10/16/18 0455 Subjective 24 Hr Interval Summary Free Text/Dictation Patient got femoral vascath, about to get hemodialysis. Overall feeling well. Still complains of cramping lower abdominal pain and d iarrhea. Exam/Review of Systems Exam Vitals Vital Signs Date Temp Pulse Resp B/P (MAP) Pulse Ox O2 O2 Flow FiO2 Time Delivery Rate 10/16/18 96 12:14 10/16/18 98.1 20 131/78 93 Nasal 11:34 (95) Cannula 10/16/18 40 05:05 Intake and Output 10/15/18 10/15/18 10/16/18 1515:00 23:00 07:00 IntakeIntake Total 141 ml OutputOutput Total 550 ml BalanceBalance -409 ml Exam General: Obese 38 year-old man lying in bed in mild respiratory distress. HEENT: Normocephalic, atraumatic. Eyes: Anicteric sclerae, conjunctivae clear. ENT: Nasal septum midline, oral mucosa moist. Neck supple. Respiratory: Bilaterally diminished breath sounds. No use of accessory muscles of respiration. No adventitious breath sounds. Cardiovascular: S1, S2 heard. Regular rate and rhythm. Tachycardia. Abdomen: Distended but soft, peritoneal cath in place clean appearing. Tender to palpation throughout with rebound tenderness. Extremities: No cyanosis, no clubbing. Bilateral lower extremity nonpitting edema. Peripheral pulses palpable. Femoral catheter in place. Results Results 24hrs Laboratory Tests Test 10/15/18 15:54 10/15/18 16:00 10/16/18 02:58 10/16/18 04:55 Hemoglobin A1c 6.3 H White Blood Count 13.3 H 11.4 H Red Blood Count 3.76 L 3.50 L Hemoglobin 10.0 L 9.2 L Hematocrit 33.0 L 30.9 L Mean Corpuscular 87.8 88.3 Volume Mean Corpuscular 26.6 L 26.3 L Hemoglobin Mean Corpuscular 30.3 L 29.8 L Hemoglobin Concent Red Cell 16.7 H 16.5 H Distribution Width Platelet Count 301 278 Mean Platelet Volume 10.1 10.5 H Immature 1.200 H 1.100 H Granulocytes % Neutrophils % 90.3 H 87.7 H Lymphocytes % 4.6 L 4.5 L Monocytes % 3.5 5.4 Eosinophils % 0.2 1.1 Basophils % 0.2 0.2 Nucleated Red Blood 0.0 0.0 Cells % Immature 0.160 H 0.130 H Granulocytes # Neutrophils # 12.0 H 10.0 H Lymphocytes # 0.6 L 0.5 L Monocytes # 0.5 0.6 Eosinophils # 0.0 0.1 Basophils # 0.0 0.0 Nucleated Red Blood 0.0 0.0 Cells # Prothrombin Time 15.3 H Prothrombin Time 1.2 Ratio INR International 1.20 Normalized Ratio Activated 31.7 Partial Thromboplast Time Sodium Level 137 138 Potassium Level 4.5 4.8 Chloride Level 96 L 97 Carbon Dioxide Level 26 28 Anion Gap 15 H 13 Blood Urea Nitrogen 85 H 88 H Creatinine 15.74 H 17.73 H Est Glomerular 3 L 3 L Filtrat Rate mL/min Glucose Level 108 109 Calcium Level 8.8 8.8 Total Bilirubin 0.3 0.2 Direct Bilirubin 0.00 0.00 Indirect Bilirubin 0.3 0.2 Aspartate Amino 14 L 12 L Transf (AST/SGOT) Alanine 14 17 Aminotransferase (AL T/SGPT) Alkaline Phosphatase 60 55 Troponin I 0.241 *H 0.362 *H B-Type Natriuretic 68587 H Peptide Total Protein 7.2 5.6 #L Albumin 3.9 3.2 L Globulin 3.30 H 2.40 Albumin/Globulin 1.18 1.33 Ratio Lipase 69 Lactic Acid Level 0.9 Magnesium Level 2.5 Creatine Kinase 68 Creatine Kinase 3.1 Index Creatinine Kinase MB 2.13 (Mass) Triglycerides Level 175 H Cholesterol Level 141 LDL Cholesterol, 75 Calculated HDL Cholesterol 31 Cholesterol/HDL 4.5 Ratio Medications Medication Current Medications Amlodipine Besylate (Norvasc) 5 mg DAILY PO Last administered on 10/16/18 09:30; Admin Dose 5 MG; Start 10/16/18 at 09:00 Calcium Acetate (Phoslo) 1,334 mg WITH MEALS PO Last administered on 10/16/18 12:35; Admin Dose 1,334 MG; Start 10/15/18 at 18:00 Cinacalcet (Sensipar) 30 mg DAILY PO Last administered on 10/16/18 09:30; Admin Dose 30 MG; Start 10/16/18 at 09:00 Hydralazine HCl (Apresoline) 25 mg TID PO Last administered on 10/16/18 09:31; Admin Dose 25 MG; Start 10/15/18 at 21:00 Metolazone (Zaroxolyn) 5 mg DAILY PO Last administered on 10/16/18 12:36; Admin Dose 5 MG; Start 10/16/18 at 09:00 Metoprolol Tartrate (Lopressor) 100 mg BID PO Last administered on 10/16/18 09:31; Admin Dose 100 MG; Start 10/15/18 at 21:00 IV Flush (NS 3 ml) 3 ml PER PROTOCOL IV ; Start 10/15/18 at 18:00 Ondansetron HCl (Zofran Inj) 4 mg Q6H PRN IV NAUSEA/VOMITING; Start 10/15/18 at 18:00 Acetaminophen (Tylenol Tab) 650 mg Q6H PRN PO .PAIN 1-3 OR TEMP Last administered on 10/16/18 00:23; Admin Dose 650 MG; Start 10/15/18 at 18:00 Acetaminophen/ Hydrocodone Bitart ([place] (5/325)) 1 tab Q6H PRN PO .PAIN 4-6; Start 10/15/18 at 18:00 Heparin Sodium (Porcine) (Heparin (5000 Units/1ml)) 5,000 unit Q8 SC Last administered on 10/16/18at 06:11; Admin Dose 5,000 UNIT; Start 10/15/18 at 22:00 Heparin Sodium (Porcine) (Heparin (1000 Units/ml)) 4,000 unit AFTER DIALYSIS CATHETER ; Start 10/15/18 at 18:30 Sodium Chloride 1,000 ml @ 0 mls/hr Q0M PRN IV TO KEEP SBP ABOVE 90; Start 10/15/18 at 18:11 Sodium Chloride (NS) -To prime the dialy... DIRECTED FOR HD PRN IV HD; Start 10/15/18 at 18:30 Amoxicillin/ Clavulanate Potassium (Augmentin) 875 mg BID PO Last administered on 10/16/18at 09:30; Admin Dose 875 MG; Start 10/16/18 at 03:30; Stop 10/17/18 at 09:01 AMBREEN ALVAREZ MD Oct 16, 2018 15:27
--- NOTE | 2018-10-16 16:27 | OPR ---
DATE OF OPERATION: PREOPERATIVE DIAGNOSIS: Renal failure. POSTOPERATIVE DIAGNOSIS: Renal failure. PROCEDURE: Right femoral hemodialysis catheter placement. SURGEON: Facundo Carmona MD ANESTHESIA: Local. CONSENT: Risks, benefits, complications, alternative therapies were explained to the patient and the family and consent was obtained. OPERATIVE TECHNIQUE: The patient was placed in supine position, prepped and draped in usual sterile fashion. Time-out was called. Access was gained in the right femoral vein. Guidewire was advanced through without any difficulty. Subcutaneous tissues were dilated. Central line was advanced over g uidewire and secured to skin using silk sutures. Both ports of the catheter were aspirated and injec kyler using saline solution. The patient tolerated the procedure well. Dictated By: FACUNDO CARMONA MD FM/NTS Conf#: [id number] DID#: [id number] CC: AMBREEN ALVAREZ MD; TRACEE YATES MD;*EndCC*
[2018-10-17] VITALS (9 sets, daily range): BP systolic 108–131; BP diastolic 68–79; PULSE 79–108; RESP 19–20
[2018-10-17] MEDS: HEPARIN 5,000 UNIT/1 ML VIAL SC SCH ×2 (06:21→14:00)
[2018-10-17] MEDS: CINACALCET 30 MG TAB PO SCH (08:21)
[2018-10-17] MEDS: CALCIUM ACETATE 667 MG CAP PO SCH ×3 (08:21→18:25)
[2018-10-17] MEDS: METOPROLOL 100 MG TAB PO SCH ×2 (08:21→21:26)
[2018-10-17] MEDS: METOLAZONE 5 MG TAB PO SCH (08:21)
[2018-10-17] MEDS: AMOXICILLIN/CLAV 875 MG TAB PO SCH (08:21)
[2018-10-17] MEDS: AMLODIPINE 5 MG TAB PO SCH (08:22)
--- NOTE | 2018-10-17 14:13 | CONS ---
Consultation Date/Type/Reason Admit Date/Time Oct 15, 2018 at 16:46 Type of Consult Nephrology Date/Time of Note DATE: 10/17/18 TIME: 14:10 Hx of Present Illness OVERALL MUCH IMOROVED. NO MORE ABDOMINAL PAIN. HAD ONLY 1 HR HD DUE TO FEMORAL CATHETER MALFUNCTION CLINICALLY STABLE TO BE DISCHARED TO DO PD AT HOME DISCUSSED WITH DR ALVAREZ TO DISCARGE HOME AND FOLLOW UP PD CLINIC NEXT WEEK Exam/Review of Systems Vital Signs Vitals Vital Signs Date Temp Pulse Resp B/P (MAP) Pulse Ox O2 O2 Flow FiO2 Time Delivery Rate 10/17/18 91 12:00 10/17/18 98.5 20 108/69 95 Nasal 11:13 (82) Cannula 10/17/18 4.0 08:10 10/16/18 40 22:19 Intake and Output 10/16/18 10/16/18 10/17/18 1515:00 23:00 07:00 IntakeIntake Total 600 ml 250 ml OutputOutput Total 1600 ml BalanceBalance -1000 ml 250 ml Labs Result Diagram: 10/16/18 0455 10/16/18 0455 Results 24hrs Laboratory Tests Test 10/16/18 18:45 Urine Color YELLOW Urine Clarity SLIGHTLY CLOUDY A Urine pH 6.0 Urine Specific [place] 1.013 Urine Ketones NEGATIVE Urine Nitrite NEGATIVE Urine Bilirubin NEGATIVE Urine Urobilinogen NEGATIVE Urine Leukocyte Esterase TRACE A Urine Microscopic RBC 0 Urine Microscopic WBC 0 Urine Amorphous Crystals FEW A Urine Hemoglobin NEGATIVE Urine Glucose 1+ H Urine Total Protein 2+ H Medications Medications Current Medications Amlodipine Besylate (Norvasc) 5 mg DAILY PO Last administered on 10/17/18at 08:22; Admin Dose 5 MG; Start 10/16/18 at 09:00 Calcium Acetate (Phoslo) 1,334 mg WITH MEALS PO Last administered on 10/17/18at 12:16; Admin Dose 1,334 MG; Start 10/15/18 at 18:00 Cinacalcet (Sensipar) 30 mg DAILY PO Last administered on 10/17/18at 08:21; Admin Dose 30 MG; Start 10/16/18 at 09:00 Hydralazine HCl (Apresoline) 25 mg TID PO Last administered on 10/17/18at 12:16; Admin Dose 25 MG; Start 10/15/18 at 21:00 Metolazone (Zaroxolyn) 5 mg DAILY PO Last administered on 10/17/18 08:21; Admin Dose 5 MG; Start 10/16/18 at 09:00 Metoprolol Tartrate (Lopressor) 100 mg BID PO Last administered on 10/17/18 08:21; Admin Dose 100 MG; Start 10/15/18 at 21:00 IV Flush (NS 3 ml) 3 ml PER PROTOCOL IV ; Start 10/15/18 at 18:00 Ondansetron HCl (Zofran Inj) 4 mg Q6H PRN IV NAUSEA/VOMITING; Start 10/15/18 at 18:00 Acetaminophen (Tylenol Tab) 650 mg Q6H PRN PO .PAIN 1-3 OR TEMP Last administered on 10/16/18at 00:23; Admin Dose 650 MG; Start 10/15/18 at 18:00 Acetaminophen/ Hydrocodone Bitart ([place] (5/325)) 1 tab Q6H PRN PO .PAIN 4-6; Start 10/15/18 at 18:00 Heparin Sodium (Porcine) (Heparin (5000 Units/1ml)) 5,000 unit Q8 SC Last administered on 10/17/18at 06:21; Admin Dose 5,000 UNIT; Start 10/15/18 at 22:00 Heparin Sodium (Porcine) (Heparin (1000 Units/ml)) 4,000 unit AFTER DIALYSIS CATHETER Last administered on 10/16/18at 17:02; Admin Dose 4,000 UNIT; Start 10/15/18 at 18:30 Sodium Chloride 1,000 ml @ 0 mls/hr Q0M PRN IV TO KEEP SBP ABOVE 90; Start 10/15/18 at 18:11 Sodium Chloride (NS) -To prime the dialy... DIRECTED FOR HD PRN IV HD; Start 10/15/18 at 18:30 TRACEE YATES MD Oct 17, 2018 14:13
--- NOTE | 2018-10-17 15:11 | PDOCDIS ---
Discharge Instructions DIAGNOSIS Discharge Diagnosis Peritoneal dialysis with fluid overload CONDITION [id number] Patient Condition: [id number] Good HOME CARE INSTRUCTIONS: [id number] Diet Instructions: [id number] Regular ACTIVITY: [id number] Activity Restrictions: [id number] No Restrictions FOLLOW UP/APPOINTMENTS Follow-up Plan 1. Continue all medications as prescribed. 2. Continue nightly peritoneal dialysis. 3. Continue to see Dr. De La Fuente as scheduled. 4. Return to the emergency room if you develop chest pain or trouble breathing at rest. AMBREEN ALVAREZ MD Oct 17, 2018 15:11
--- NOTE | 2018-10-17 18:00 | DS ---
Date/Time of Note Date/Time of Note DATE: 10/17/18 TIME: 17:57 Discharge Summary Admission/Discharge Info Admit Date/Time Oct 15, 2018 at 16:46 Discharge Date/Time Oct 17, 2018 Discharge Diagnosis Peritoneal dialysis with fluid overload Patient Condition: Good Consults Dr. De La Fuente, nephrology Dr. Dubose, cardiology Procedures R femoral dialysis catheter placement (and removal) Hx of Present Illness Reason for admission: Fluid overload, dyspnea sent by Dr. Neves Consultants 1. Colton Dubose MD Cardiology. 2. Marlen Martines MD, Nephrology. 3. Dontae Carmona MD, Vascular Surgery. This is a 38-year-old male with past medical history of hypertension and end- stage renal disease on peritoneal dialysis who ran out of his Lasix for the past 3 days. The patient went to see Dr. Neves who instructed patient to go to the nearest emergency room. The patient had dyspnea on exertion and increasing peripheral edema. The patient also had increasing abdominal distention. The patient denied any chest pain or palpitations. He denied any dizziness. He denied any fevers or chills. In the emergency room, the patient was noticed to be in respiratory distress and he was put on noninvasive positive pressure ventilation. The patient's chest x-ray was showing bibasilar infiltrates and cardiomegaly. The patient was also noticed to have a troponin of 0.241. He had a BUN and creatinine of 85 and 15.74 respectively. The patient was given aspi rin 324 mg along with Lasix 80 mg by the ER physician. Hospital Course There was concern that the patient's peritoneal dialysis was not sufficient for ultrafiltration, so a right femoral dialysis catheter was placed and hemodialysis was attempted. However the catheter was suboptimal and HD was interrupted; only about 1L was removed. The patient does still produce urine, so got IV lasix will good response. He was briefly started on antibiotics but there is no concern for infection so these were discontinued. At time of discharge he was euvolemic; very mild edema, ambulating without problems and breathing comfortably on room air. Discharge was delayed due to prolonged bleeding from dialysis catheter site after removal. Also just prior to discharge the patient developed fever to 101 and he was encouraged to stay, discharge cancelled. But patient left AMA anyway. Home Meds Reported Medications Amlodipine Besylate* (Norvasc*) 5 Mg Tablet, 5 MG PO DAILY, TAB 10/15/18 Cinacalcet* (Sensipar*) 30 Mg Tab, 30 MG PO DAILY, TAB 10/15/18 Calcium Acetate* (Calcium Acetate*) 667 Mg Capsule, 1334 MG PO WITH MEALS, #60 CAP 10/15/18 Metoprolol Tartrate* (Lopressor*) 100 Mg Tablet, 100 MG PO BID, #60 TAB 10/15/18 Omeprazole* (Omeprazole*) 20 Mg Capsule.dr, 20 MG PO DAILY, #30 CAP 10/15/18 Hydralazine Hcl* (Hydralazine Hcl*) 25 Mg Tab, 25 MG PO TID, #60 TAB 10/15/18 Amoxicillin/Potassium Clav (Amox-Clav 875-125 mg Tablet) 875-125 mg Tab, 1 TAB PO BID, #20 TAB 10/15/18 Metolazone* (Metolazone*) 5 Mg Tablet, 5 MG PO DAILY, TAB 10/15/18 Albuterol Sulfate* (Ventolin HFA*) 18 Gm Hfa.aer.ad, 2 PUFF INHALATION Q4H, #1 INHALER 10/15/18 Follow-up Plan 1. Continue all medications as prescribed. 2. Continue nightly peritoneal dialysis. 3. Continue to see Dr. De La Fuente as scheduled. 4. Return to the emergency room if you develop chest pain or trouble breathing at rest. Primary Care Provider Abbe Neves MD Time spent on discharge: > 30 minutes Pending Labs Laboratory Tests Test 10/16/18 18:45 Urine Color YELLOW (YELLOW) Urine Clarity SLIGHTLY CLOUDY (CLEAR) Urine pH 6.0 (5.0-9.0) Urine Specific [place] 1.013 (1.003-1.030) Urine Ketones NEGATIVE mg/dL (NEGATIVE) Urine Nitrite NEGATIVE mg/dL (NEGATIVE) Urine Bilirubin NEGATIVE mg/dL (NEGATIVE) Urine Urobilinogen NEGATIVE mg/dL (NEGATIVE) Urine Leukocyte Esterase TRACE Esther/ul (NEGATIVE) Urine Microscopic RBC 0 /HPF (0-5) Urine Microscopic WBC 0 /HPF (0-5) Urine Amorphous Crystals FEW /HPF (NONE SEEN) Urine Hemoglobin NEGATIVE mg/dL (NEGATIVE) Urine Glucose 1+ mg/dL (NEGATIVE) Urine Total Protein 2+ mg/dl (NEGATIVE) AMBREEN ALVAREZ MD Oct 17, 2018 18:00
[2018-10-17] MEDS: ACETAMINOPHEN 325 MG TAB PO PRN (19:38)
--- NOTE | 2018-10-17 20:46 | CONS ---
Consult Date/Type/Reason Admit Date/Time Oct 15, 2018 at 16:46 Initial Consult Date 10/15/18 Requesting Provider: MARGE STAHL NP Date/Time of Note DATE: 10/17/18 TIME: 20:45 Subjective Interventional cardiology follow-up progress note Subjective: Discussed with the staff and telemetry was reviewed patient remains sinus rhythm. Patient denies any left-sided chest pain or pressure to me. Breathing has significantly improved now is off of BiPAP His lower abdominal pain has resolved now Objective: General: no respiratory distress on O2 HEENT: NC/AT. pupils are equal. round. NECK: . no stridor. CV: RRR. systolic murmur; no gallop or rubs. PULM: no wheezing . +mild rhonchi. GI: SOFT, NT, , no rebound or guarding . Extremity: + B/L LE edema. no clubbing. neuro: awake and alert, OX3. Psych: calm and pleasant rectal: deferred : normal EKG shows sinus tachycardia. The vertical conduction delay. Pulmonary pattern Chest x-ray shows: 1. Bibasilar infiltrates. 2. Cardiomegaly. Objective Vitals Vital Signs Date Temp Pulse Resp B/P (MAP) Pulse Ox O2 O2 Flow FiO2 Time Delivery Rate 10/17/18 104 20:00 10/17/18 101.0 19 131/79 96 Room Air 20:00 (96) 10/17/18 4.0 15:13 10/16/18 40 22:19 Intake and Output 10/16/18 10/16/18 10/17/18 1515:00 23:00 07:00 IntakeIntake Total 600 ml 250 ml OutputOutput Total 1600 ml BalanceBalance -1000 ml 250 ml Results/Medications Result Diagram: 10/16/18 0455 10/16/18 0455 Home Meds Reported Medications Amlodipine Besylate* (Norvasc*) 5 Mg Tablet, 5 MG PO DAILY, TAB 10/15/18 Cinacalcet* (Sensipar*) 30 Mg Tab, 30 MG PO DAILY, TAB 10/15/18 Calcium Acetate* (Calcium Acetate*) 667 Mg Capsule, 1334 MG PO WITH MEALS, #60 CAP 10/15/18 Metoprolol Tartrate* (Lopressor*) 100 Mg Tablet, 100 MG PO BID, #60 TAB 10/15/18 Omeprazole* (Omeprazole*) 20 Mg Capsule.dr, 20 MG PO DAILY, #30 CAP 10/15/18 Hydralazine Hcl* (Hydralazine Hcl*) 25 Mg Tab, 25 MG PO TID, #60 TAB 10/15/18 Amoxicillin/Potassium Clav (Amox-Clav 875-125 mg Tablet) 875-125 mg Tab, 1 TAB PO BID, #20 TAB 10/15/18 Metolazone* (Metolazone*) 5 Mg Tablet, 5 MG PO DAILY, TAB 10/15/18 Albuterol Sulfate* (Ventolin HFA*) 18 Gm Hfa.aer.ad, 2 PUFF INHALATION Q4H, #1 INHALER 10/15/18 Medications Current Medications Amlodipine Besylate (Norvasc) 5 mg DAILY PO Last administered on 10/17/18 08:22; Admin Dose 5 MG; Start 10/16/18 at 09:00 Calcium Acetate (Phoslo) 1,334 mg WITH MEALS PO Last administered on 10/17/18 18:25; Admin Dose 1,334 MG; Start 10/15/18 at 18:00 Cinacalcet (Sensipar) 30 mg DAILY PO Last administered on 10/17/18 08:21; Admin Dose 30 MG; Start 10/16/18 at 09:00 Hydralazine HCl (Apresoline) 25 mg TID PO Last administered on 10/17/18 12:16; Admin Dose 25 MG; Start 10/15/18 at 21:00 Metolazone (Zaroxolyn) 5 mg DAILY PO Last administered on 10/17/18 08:21; Admin Dose 5 MG; Start 10/16/18 at 09:00 Metoprolol Tartrate (Lopressor) 100 mg BID PO Last administered on 10/17/18 08:21; Admin Dose 100 MG; Start 10/15/18 at 21:00 IV Flush (NS 3 ml) 3 ml PER PROTOCOL IV ; Start 10/15/18 at 18:00 Ondansetron HCl (Zofran Inj) 4 mg Q6H PRN IV NAUSEA/VOMITING; Start 10/15/18 at 18:00 Acetaminophen (Tylenol Tab) 650 mg Q6H PRN PO .PAIN 1-3 OR TEMP Last administered on 6/12/19at 19:38; Admin Dose 650 MG; Start 10/15/18 at 18:00 Acetaminophen/ Hydrocodone Bitart ([place] (5/325)) 1 tab Q6H PRN PO .PAIN 4-6; Start 10/15/18 at 18:00 Heparin Sodium (Porcine) (Heparin (5000 Units/1ml)) 5,000 unit Q8 SC Last administered on 10/17/18at 06:21; Admin Dose 5,000 UNIT; Start 10/15/18 at 22:00 Heparin Sodium (Porcine) (Heparin (1000 Units/ml)) 4,000 unit AFTER DIALYSIS CATHETER Last administered on 10/16/18at 17:02; Admin Dose 4,000 UNIT; Start 10/15/18 at 18:30 Sodium Chloride 1,000 ml @ 0 mls/hr Q0M PRN IV TO KEEP SBP ABOVE 90; Start 10/15/18 at 18:11 Sodium Chloride (NS) -To prime the dialy... DIRECTED FOR HD PRN IV HD; Start 10/15/18 at 18:30 Assessment/Plan Hospital Course (Demo Recall) 1. Mildly abnormal troponin with no chest pain: Most likely secondary to his renal failure and fluid overload/congestive heart failure 2. Fluid overload/congestive heart failure acute on chronic probably secondary to fluid overload. Rule out cardiomyopathy 3. Hypertension hypertensive heart disease 4. Renal failure on peritoneal dialysis 5. Abdominal pain 6. Anemia Recommendations: echo reviewed. Dialysis as per renal team. Continue with blood pressure control. dc planning is in process Thank you for his referral. We will continue to follow along with you EDSON CASTELLON MD [facility] EDSON CASTELLON MD Oct 17, 2018 20:46
--- NOTE | 2018-10-17 21:11 | EN ---
Date/Time of Note Date/Time of Note DATE: 10/17/18 TIME: 21:08 Event Note Medicine Medicine Event Note Patient was said to be discharged however prior to discharge the nurse reported a fever of 101. I requested the nurse to hold the discharge and I ordered blood cultures x2, urinalysis urine culture and a chest x-ray. Additional labs were going to be placed as well however the nurse reported to me that the patient did not want labs to be drawn and he wanted to leave. Risks and benefits of leaving AGAINST MEDICAL ADVICE were explained to the patient. The patient's nurse reported to me that the patient is going to leave AMA. KRISTI SPICER Oct 17, 2018 21:11
== END 2018-10-17 21:55 | disposition left against medical advice (07) | DRG 640 ==
LOC: E/R 13:37 → 6WM 16:46
PROVIDERS: ADMIT Internal Medicine; ATTEND Internal Medicine
PROC: 5A09357 Assistance with Respiratory Ventilation, Less than 24 Consecutive Hours, Continuous Positive Airway Pressure (ICD-10-PCS; 2018-10-15)
PROC: 06HY33Z Insertion of Infusion Device into Lower Vein, Percutaneous Approach (ICD-10-PCS; principal; 2018-10-16)
PROC: 5A1D70Z Performance of Urinary Filtration, Intermittent, Less than 6 Hours Per Day (ICD-10-PCS; 2018-10-16)
DX: E87.79 Other fluid overload (principal); N18.6 End stage renal disease; I21.A1 Myocardial infarction type 2; I13.2 Hypertensive heart and chronic kidney disease with heart failure and with stage 5 chronic kidney disease, or end stage renal disease; J98.11 Atelectasis; D63.1 Anemia in chronic kidney disease; E66.9 Obesity, unspecified; I50.9 Heart failure, unspecified; K52.9 Noninfective gastroenteritis and colitis, unspecified; R06.03 Acute respiratory distress; R60.0 Localized edema; R50.9 Fever, unspecified; T50.1X6A Underdosing of loop [high-ceiling] diuretics, initial encounter; Z91.138 Patient's unintentional underdosing of medication regimen for other reason; Z91.11 Patient's noncompliance with dietary regimen; Z99.2 Dependence on renal dialysis; Z68.36 Body mass index [BMI] 36.0-36.9, adult; Z87.891 Personal history of nicotine dependence
CPT/HCPCS: 36415; 71045; 76705; 80053; 80061; 81001; 82550; 82553; 83036; 83605; 83690; 83735; 83880; 84484; 85025; 85610; 85730; 86706; 87086; 87340; 90935; 93005; 93306; 94660; 96374; J1644; J1940; J7070